=== PATIENT | female | born 1990 | race Caucasian/White ===

== ENCOUNTER 2016-12-03 19:16 | Emergency (ER) | payer BC, OTHER ==
[~2016-12-03] VITALS: Ht 167.6 cm; Wt 83.3 kg
[~2016-12-03 19:16] MED LIST: DOCU-30 PO; IBUP-1222 PO; OXYC-302 PO
[2016-12-03 19:17] VITALS: BP 133/77
[2016-12-03] MEDS ORDERED: KETOROLAC 30 MG/1 ML IM ONE (19:30)
[2016-12-03] MEDS ORDERED: KETOROLAC 30 MG/1 ML ONE (19:31)
== END 2016-12-03 21:04 | disposition home or self-care (01) ==
LOC: ED 20:58
DX: S16.1XXA Strain of muscle, fascia and tendon at neck level, initial encounter (principal); S39.012A Strain of muscle, fascia and tendon of lower back, initial encounter; M62.830 Muscle spasm of back; V89.2XXA Person injured in unspecified motor-vehicle accident, traffic, initial encounter; Y93.89 Activity, other specified; Y92.89 Other specified places as the place of occurrence of the external cause; Y99.8 Other external cause status
CPT/HCPCS: 72050; 72110; 96372; 99284; J1885